=== PATIENT | male | born 1990 | race Caucasian/White ===

== ENCOUNTER 2025-03-31 06:46 | Emergency (ER) | payer OTHER, SELFPAY ==
--- OUTSIDE RECORDS SUMMARY | 1998-02-13 23:00 | XMS_ITS | Encounter Summary ---
Author Organization [facility] Address [address] [place] [id number] Care Team Providers Care Military Pilot Name Role Phone Unavailable Primary Care Provider Unavailabl e Encounter Details Date Type Department Care Team (Late st Contact Info) Description 02/14/1998 Hospital Encounter [facility] Division of Cardiology [address] [place] [phone] Social History Tobacco Use Types Packs/Day Years Used Date Smoking Tobacco: Never Assessed Sex and Gender Information Value Date Recorded Sex Assigned at Not on file Legal Sex Male 5:11 AM EST Gender Identity Not on file Sexual Orientation Not on file documented as of this encounter Plan of Treatment Not on file documented as of this encounter Visit Diagnoses Not on filedocumented in this encounter
[2025-03-31] VITALS (8 sets, daily range): BP systolic 134–150; BP diastolic 71–124; PULSE 70–86; RESP 16–18; TEMP 36.5; O2SAT 97–99; BMI 26.6
--- NOTE | 2025-03-31 06:50 | CT_ITS ---
FINAL REPORT TECHNIQUE: Axial CT images were performed through the head. Coronal and sagittal reformatted images were submitted. This study was performed with techniques to keep radiation doses as low as reasonably achievable (ALARA). Individualized dose reduction techniques using automated exposure control or adjustment of mA and/or kV according to the patient's size were employed. CLINICAL HISTORY: spouse witnessed seizure like activity, no known history of seizures COMPARISON: None FINDINGS: CT HEAD: The ventricles are normal in size. There is no evidence of hemorrhage. There is no mass or edema identified. There is no abnormal extra-axial fluid seen. Mucoperiosteal thickening is present in the ethmoid air cells. IMPRESSION: No acute intracranial process. Reviewed, Interpreted and Dictated by Rodolfo Farias MD Transcribed by Aleisha Arriola Authenticated and [facility]
--- NOTE | 2025-03-31 06:50 | CT_ITS ---
FINAL REPORT TECHNIQUE: After the administration of oral and intravenous contrast, axial images were obtained through the abdomen and pelvis by computed tomography. The study was performed with techniques to keep radiation dose as low as reasonably achievable, (ALARA). Individual dose reduction techniques using automated exposure control or adjustment of mA and/or kV according to the patient's size were employed. CLINICAL HISTORY: low L flank pain, testicle pain COMPARISON: None FINDINGS: Abdomen: The lung bases are clear. The liver parenchyma is homogeneous. The gallbladder is present. The spleen, pancreas, and adrenals appear unremarkable. There is a 6 mm nonobstructing stone present in the lower pole of the right kidney. There are also several punctate nonobstructing stones present in the left renal collecting system. No hydronephrosis is noted. The aorta is normal in caliber. There is no free fluid or adenopathy. Pelvis: The appendix is normal in appearance. The urinary bladder is unremarkable. There is no free fluid or adenopathy. IMPRESSION: No acute intra-abdominal process. Bilateral nonobstructing small renal stones, the largest of which is in the lower pole of the right kidney measuring 6 mm in size. Reviewed, Interpreted and Dictated by Rodolfo Farias MD Transcribed by Aleisha Arriola Authenticated and [facility]
--- NOTE | 2025-03-31 06:50 | US_ITS ---
PROCEDURE INFORMATION: Exam: US Scrotum Exam date and time: 03/31/2025 7:01 AM Age: 34 years old Clinical indication: Scrotum pain; Additional info: L testicle pain, gradually worsening, ttp TECHNIQUE: Imaging protocol: Real-time ultrasound of the scrotum and contents with color Doppler and image documentation. COMPARISON: No relevant prior studies available. FINDINGS: Right testicle: Normal. No mass. Normal color Doppler and arterial waveforms. No torsion. Left testicle: Normal. No mass. Normal color Doppler and arterial waveforms. No torsion. Epididymides: 7 mm cyst left epididymal head. Right epididymis unremarkable. Scrotum/soft tissues: Small bilateral hydroceles. No scrotal wall thickening. IMPRESSION: 1. No findings to suggest testicular torsion. 2. 7 mm left epididymal head cyst. 3. Small bilateral hydroceles.
--- NOTE | 2025-03-31 06:54 | HMH.EDGENADL ---
Discharge Plan Disposition Patient Disposition: Home, Self-Care Referrals Follow up/Referrals: Fede Feng MD [Staff Physician, Urology] - See instructions Provider,MD Della [Primary Care Provider, Medical] - See instructions Activity Restrictions/Add. Instructions Additional Instructions/Restrictions: I encourage you to follow-up with your primary care doctor for reevaluation as soon as possible. I am referring you to our urologist, Dr. Feng, as you are found to have a cyst on your left epididymis, which lies above the testicle. I encourage you to call them to schedule follow-up appointment. You can take Tylenol and ibuprofen to help with your pain. If you develop any new or worsening symptoms, or if you become concerned for your health for any reason, return to the emergency department for evaluation Clinical Impressions Clinical Impression: Cyst of epididymis, Left testicular pain, Acute left flank pain Print Language Print Language: Lithuanian Discharge ED Provider: Dennys Rivera General Adult HPI <Dennys Rivera MD - Last Filed: 03/31/25 07:01> General Chief complaint: PAIN Stated complaint: possible seizure Time Seen by Provider: 03/31/25 06:49 History of Present Illness HPI narrative: 34-year-old male with history of PTSD currently not taking any of his normally prescribed medications presents to the ER complaining of left testicular pain that reportedly started approximately 9 hours prior to arrival. He states it started gradually and was accompanied by low left flank pain but he states he also has a left-sided back injury recently so he is not sure if the flank pain is related to the old injury or to the testicular pain. He does report a history of kidney stones and states this feels similar but the testicular pain was new. He states he took aspirin, sinus spray, and smokes marijuana last night trying to get relief of symptoms without significant improvement. He states his pain got progressively worse all night and he was not able to get any sleep, this morning he got up to try to use the restroom but blacked out while on the commode and reportedly his witnessed convulsion type activity. Patient does not remember the convulsion specifically but remembers coming out of them hearing his telling 911 he seems to be having a seizure. He has no seizure history. He was immediately back to baseline after the episode. is not yet here to give additional history or tell me how long the episode lasted. Patient denies any headache or dizziness, no numbness, tingling, or weakness. He did have emesis with EMS shortly prior to arrival. EMS reports no medications administered prior to arrival. Patient is still shaky and has cold sweats. Denies chest pain or difficulty breathing. Reports nausea and vomiting, no diarrhea or constipation. Denies dysuria or hematuria. No known injury to the testicle. Patient is alert and oriented on arrival though diaphoretic and pale. Reports no known drug allergies. Related Data Allergies Allergy/AdvReac Type Severity Reaction Status Date / Time No Known Allergies Allergy Verified 03/31/25 07:08 [facility] <Dennys Rivera MD - Last Filed: 03/31/25 07:01> [facility] Disclaimer: The information contained in this section may have been updated after the patient was seen, as this information can be updated by other users. Social History (Updated 03/31/25 @ 07:01 by Dennys Rivera MD) Smoking Status: Unknown if ever smoked alcohol intake: never current occupational status: other Travel in the last 8 weeks?: None Have you lived/traveled outside US in past 30 days?: No Contact w/someone who lives/traveled outside US past 30 days?: No Exposure to someone with infectious disease in past 14 days?: No Do you have a fever (greater than 100.4 F or 38 C)?: No Have you tested positive for COVID-19?: No Exposed to someone with COVID-19 in past 14 days?: No Do you have a sore throat?: No Do you have a cough?: No Do you have any weakness?: No Do you have any diarrhea?: No Are you experiencing any unusual bleeding?: No Do you have any muscle aches/pain?: No Do you have any abdominal pain?: No Are you experiencing loss of taste or smell?: No <Dennys Rivera MD - Last Filed: 03/31/25 07:01> ROS Obtained: Yes Systems reviewed as appropriate & no additional complaints except as documented Per HPI Physical Exam <Dennys Rivera MD - Last Filed: 03/31/25 07:01> General General appearance: alert Comment: Obviously in pain, shivering/shaking full body in a cold sweat, diaphoretic, pale Head Head exam: atraumatic and normocephalic Eye Eye exam: Present PERRL and EOMI ENT ENT exam: Present mucous membranes moist Neck Neck exam: Present normal inspection and full ROM Chest Chest inspection: Present symmetric chest wall rise Respiratory Respiratory exam: Present normal lung sounds bilaterally; Absent respiratory distress, wheezes or stridor Cardiovascular Cardiovascular exam: Present regular rate and normal rhythm Abdominal Exam Abdominal exam: Present soft; Absent distention, tenderness, guarding or rebound exam: Present normal inspection, testicular tenderness (Mild left, not significant) and normal testicular lie; Absent scrotal swelling Extremities Exam Extremities exam: Present full ROM and normal capillary refill; Absent edema Back Exam Back exam: Present CVA tenderness (L); Absent vertebral tenderness Back 1 view image:  1. Tenderness to percussion Neurological Exam Neurological exam: Present alert, oriented X3 and other (GCS 15, NIH 0); Absent motor sensory deficit Psychiatric Psychiatric exam: Present normal affect and normal mood Skin Skin exam: Present diaphoresis and other (Cool, pale, diaphoretic) Medical Decision Making <Dennys Rivera MD - Last Filed: 03/31/25 07:01> Medical Records Screening: Per USPSTF and CDC recommendations, given the prevalence of disease in our region, it is our hospital?s policy to screen for HIV and viral Hepatitis for all patients aged 18 and over and those with ongoing risk factors. [place] Inquiry Pt receiving controlled substance: No Vital Signs: 03/31/25 06:51 03/31/25 06:58 03/31/25 07:00 Temperature 97.7 F Temperature Source Oral Pulse Rate 82 75 Pulse Rate [Left] 78 Respiratory Rate 18 Blood Pressure 148/124 H 147/84 H Blood Pressure [Right Arm] 145/78 H Blood Pressure Mean [Right Arm] 100 Blood Pressure Source [Right Arm] Automatic Cuff Blood Pressure Position [Right Arm] Sitting 02 Sat by Pulse Oximetry 99 99 97 Oxygen Delivery Method Room Air Room Air Room Air 03/31/25 07:50 03/31/25 08:01 03/31/25 08:30 Temperature Temperature Source Pulse Rate 86 71 70 Pulse Rate [Left] Respiratory Rate Blood Pressure 150/83 H 134/86 135/84 Blood Pressure [Right Arm] Blood Pressure Mean [Right Arm] Blood Pressure Source [Right Arm] Blood Pressure Position [Right Arm] 02 Sat by Pulse Oximetry 97 99 98 Oxygen Delivery Method Room Air Room Air Room Air 03/31/25 09:00 Temperature Temperature Source Pulse Rate 79 Pulse Rate [Left] Respiratory Rate Blood Pressure 139/71 Blood Pressure [Right Arm] Blood Pressure Mean [Right Arm] Blood Pressure Source [Right Arm] Blood Pressure Position [Right Arm] 02 Sat by Pulse Oximetry 97 Oxygen Delivery Method Room Air Lab Data Lab Results 03/31/25 06:55: WBC 12.2 H, RBC 5.12, Hgb 14.4, Hct 42.8, MCV 83.6, MCH 28.1, MCHC 33.6, RDW 12.6, Plt Count 259, MPV 9.9, Neut % (Auto) 53.6, Lymph % (Auto) 35.2, [place] % (Auto) 7.6, Eos % (Auto) 2.8, Baso % (Auto) 0.5, Neut # (Auto) 6.5, Lymph # (Auto) 4.3, [place] # (Auto) 0.9, Eos # (Auto) 0.3, Baso # (Auto) 0.1, Sodium 133 L, Potassium 3.8, Chloride 103, Carbon Dioxide 20 L, Anion Gap 13.8, BUN 15, Creatinine 0.90, Estimated Creat Clear 134, Estimated GFR 97, Est GFR ( Amer) 117, Glucose 143 H, Lactate 3.9 H, Calcium 9.1, Total Bilirubin 0.4, AST 25, ALT 24, Alkaline Phosphatase 66, Total Protein 6.9, Albumin 4.6, Globulin 2.3, Albumin/Globulin Ratio 2.0 H, Lipase 74, Plasma/Serum Alcohol < 10 03/31/25 09:10: Urine Color Yellow, Urine Appearance Clear, Urine pH 6.5, Ur Specific Gobler <= 1.005, Urine Protein Negative, Urine Glucose (UA) Negative, Urine Ketones Negative, Urine Blood Trace-l, Urine Nitrate Negative, Urine Bilirubin Negative, Urine Urobilinogen 0.2, Ur Leukocyte Esterase Negative, Urine RBC None, Urine WBC Occasional, Ur Squamous Epith Cells Occasional, Urine Bacteria None 03/31/25 06:55 03/31/25 06:55 Orders (Tests/Meds): ED MEDICATIONS Generic Name Dose Route Start Last Admin Trade Name Freq PRN Reason Stop Dose Admin Sodium Chloride 10 ml 03/31/25 07:48 03/31/25 07:49 Sodium Chloride 0.9% 10ml Syr (Rad Only) IV 04/30/25 07:47 10 ml NEEDED PRN Administration Maintain IV Site Discontinued Medications Generic Name Dose Route Start Last Admin Trade Name Chinyere PRN Reason Stop Dose Admin Acetaminophen 1,000 mg 03/31/25 09:02 03/31/25 09:08 Acetaminophen 500mg Tab PO 03/31/25 09:03 1,000 mg ONCE ONE Administration Lactated Ringer's 1,000 mls @ 999 mls/hr 03/31/25 06:51 03/31/25 09:11 Lactated Ringer's 1000 Ml Bag IV 03/31/25 07:51 Infused .Q1H1M ONE Infusion Iopamidol 75 ml 03/31/25 07:48 03/31/25 07:49 Iopamidol-370 (76%);100ml Bottle IV 03/31/25 07:49 75 ml ONCE ONE Administration Morphine Sulfate 6 mg 03/31/25 06:51 03/31/25 07:46 Morphine 4mg/Ml Syringe IV 03/31/25 06:52 6 mg ONCE ONE Administration Ondansetron HCl 4 mg 03/31/25 06:51 03/31/25 07:46 Ondansetron 4mg/2ml Vial IV 03/31/25 06:52 4 mg ONCE ONE Administration ORDERS Category Date Time Status CT abdomen pelvis w con Stat Cat Scan 03/31/25 06:[address] head/brain wo con Stat Cat Scan 03/31/25 06:50 Completed CBC w/Auto Diff [Complete Blood Count Auto Diff] Stat Lab 03/31/25 06:55 Completed CMP [Comprehensive Metabolic Panel] Stat Lab 03/31/25 06:55 Completed Ethanol [Ethyl Alcohol] Stat Lab 03/31/25 06:55 Completed Lactic Acid Stat Lab 03/31/25 06:55 Completed Lipase Stat Lab 03/31/25 06:55 Completed UDS [Drug Screen,Urine] Stat Lab 03/31/25 07:38 Received Urinalysis and Microscopic Stat Lab 03/31/25 09:10 Completed Testicular US [US Testicular] Stat Ultrasound 03/31/25 06:50 Completed Medical Decision Narrative: In summary, this 34-year-old male with comorbidities described in the HPI presents to the emergency department today with left testicular pain, left flank pain, vomiting, seizure-like activity. On initial evaluation patient is hemodynamically stable, afebrile, pale, cool, diaphoretic, alert, oriented, GCS 15, NIH 0, exam notable for left-sided CVA tenderness and very mild left testicular tenderness though the testicle appears to be in normal lie, soft, remainder of exam benign. Differential diagnosis includes but is not limited to seizure-like activity, syncope with convulsions, urolithiasis, hydronephrosis, kidney dysfunction, testicular torsion, urinary tract infection, intoxication, electrolyte abnormality, dehydration, among others. Based on these concerns, I ordered emergent testicular ultrasound, CT abdomen pelvis, CT head, hematologic and serum labs, urinalysis. Patient is receiving morphine, Zofran, IV fluids for initial treatment. Patient handed off to Dr. Silva in stable condition pending lab and imaging workup. <Emanuel Silva MD - Last Filed: 03/31/25 10:04> Vital Signs: 03/31/25 06:51 03/31/25 06:58 03/31/25 07:00 Temperature 97.7 F Temperature Source Oral Pulse Rate 82 75 Pulse Rate [Left] 78 Respiratory Rate 18 Blood Pressure 148/124 H 147/84 H Blood Pressure [Right Arm] 145/78 H Blood Pressure Mean [Right Arm] 100 Blood Pressure Source [Right Arm] Automatic Cuff Blood Pressure Position [Right Arm] Sitting 02 Sat by Pulse Oximetry 99 99 97 Oxygen Delivery Method Room Air Room Air Room Air 03/31/25 07:50 03/31/25 08:01 03/31/25 08:30 Temperature Temperature Source Pulse Rate 86 71 70 Pulse Rate [Left] Respiratory Rate Blood Pressure 150/83 H 134/86 135/84 Blood Pressure [Right Arm] Blood Pressure Mean [Right Arm] Blood Pressure Source [Right Arm] Blood Pressure Position [Right Arm] 02 Sat by Pulse Oximetry 97 99 98 Oxygen Delivery Method Room Air Room Air Room Air 03/31/25 09:00 Temperature Temperature Source Pulse Rate 79 Pulse Rate [Left] Respiratory Rate Blood Pressure 139/71 Blood Pressure [Right Arm] Blood Pressure Mean [Right Arm] Blood Pressure Source [Right Arm] Blood Pressure Position [Right Arm] 02 Sat by Pulse Oximetry 97 Oxygen Delivery Method Room Air Lab Data Lab Results 03/31/25 06:55: WBC 12.2 H, RBC 5.12, Hgb 14.4, Hct 42.8, MCV 83.6, MCH 28.1, MCHC 33.6, RDW 12.6, Plt Count 259, MPV 9.9, Neut % (Auto) 53.6, Lymph % (Auto) 35.2, [place] % (Auto) 7.6, Eos % (Auto) 2.8, Baso % (Auto) 0.5, Neut # (Auto) 6.5, Lymph # (Auto) 4.3, [place] # (Auto) 0.9, Eos # (Auto) 0.3, Baso # (Auto) 0.1, Sodium 133 L, Potassium 3.8, Chloride 103, Carbon Dioxide 20 L, Anion Gap 13.8, BUN 15, Creatinine 0.90, Estimated Creat Clear 134, Estimated GFR 97, Est GFR ( Amer) 117, Glucose 143 H, Lactate 3.9 H, Calcium 9.1, Total Bilirubin 0.4, AST 25, ALT 24, Alkaline Phosphatase 66, Total Protein 6.9, Albumin 4.6, Globulin 2.3, Albumin/Globulin Ratio 2.0 H, Lipase 74, Plasma/Serum Alcohol < 10 03/31/25 09:10: Urine Color Yellow, Urine Appearance Clear, Urine pH 6.5, Ur Specific [place] <= 1.005, Urine Protein Negative, Urine Glucose (UA) Negative, Urine Ketones Negative, Urine Blood Trace-l, Urine Nitrate Negative, Urine Bilirubin Negative, Urine Urobilinogen 0.2, Ur Leukocyte Esterase Negative, Urine RBC None, Urine WBC Occasional, Ur Squamous Epith Cells Occasional, Urine Bacteria None Orders (Tests/Meds): ED MEDICATIONS Generic Name Dose Route Start Last Admin Trade Name Malcolmq PRN Reason Stop Dose Admin Sodium Chloride 10 ml 03/31/25 07:48 03/31/25 07:49 Sodium Chloride 0.9% 10ml Syr (Rad Only) IV 04/30/25 07:47 10 ml NEEDED PRN Administration Maintain IV Site Discontinued Medications Generic Name Dose Route Start Last Admin Trade Name Freq PRN Reason Stop Dose Admin Acetaminophen 1,000 mg 03/31/25 09:02 03/31/25 09:08 Acetaminophen 500mg Tab PO 03/31/25 09:03 1,000 mg ONCE ONE Administration Lactated Ringer's 1,000 mls @ 999 mls/hr 03/31/25 06:51 03/31/25 09:11 Lactated Ringer's 1000 Ml Bag IV 03/31/25 07:51 Infused .Q1H1M ONE Infusion Iopamidol 75 ml 03/31/25 07:48 03/31/25 07:49 Iopamidol-370 (76%);100ml Bottle IV 03/31/25 07:49 75 ml ONCE ONE Administration Morphine Sulfate 6 mg 03/31/25 06:51 03/31/25 07:46 Morphine 4mg/Ml Syringe IV 03/31/25 06:52 6 mg ONCE ONE Administration Ondansetron HCl 4 mg 03/31/25 06:51 03/31/25 07:46 Ondansetron 4mg/2ml Vial IV 03/31/25 06:52 4 mg ONCE ONE Administration ORDERS Category Date Time Status CT abdomen pelvis w con Stat Cat Scan 03/31/25 06:[address] head/brain wo con Stat Cat Scan 03/31/25 06:50 Completed CBC w/Auto Diff [Complete Blood Count Auto Diff] Stat Lab 03/31/25 06:55 Completed CMP [Comprehensive Metabolic Panel] Stat Lab 03/31/25 06:55 Completed Ethanol [Ethyl Alcohol] Stat Lab 03/31/25 06:55 Completed Lactic Acid Stat Lab 03/31/25 06:55 Completed Lipase Stat Lab 03/31/25 06:55 Completed UDS [Drug Screen,Urine] Stat Lab 03/31/25 07:38 Received Urinalysis and Microscopic Stat Lab 03/31/25 09:10 Completed Testicular US [US Testicular] Stat Ultrasound 03/31/25 06:50 Completed Medical Decision Narrative: In summary, this 34-year-old male with comorbidities described in the HPI presents to the emergency department today with left testicular pain, left flank pain, vomiting, seizure-like activity. On initial evaluation patient is hemodynamically stable, afebrile, pale, cool, diaphoretic, alert, oriented, GCS 15, NIH 0, exam notable for left-sided CVA tenderness and very mild left testicular tenderness though the testicle appears to be in normal lie, soft, remainder of exam benign. Differential diagnosis includes but is not limited to seizure-like activity, syncope with convulsions, urolithiasis, hydronephrosis, kidney dysfunction, testicular torsion, urinary tract infection, intoxication, electrolyte abnormality, dehydration, among others. Based on these concerns, I ordered emergent testicular ultrasound, CT abdomen pelvis, CT head, hematologic and serum labs, urinalysis. Patient is receiving morphine, Zofran, IV fluids for initial treatment. Patient handed off to Dr. Silva in stable condition pending lab and imaging workup. Emanuel Silva MD At the time my assumption of care, plan was to follow-up patient's workup. Ultimately, patient's workup showed patient's workup shows mild leukocytosis of 12.2 without neutrophilia. No anemia. Mild hyponatremia at 133 but electrolytes otherwise within normal limits. No GLO. Lactate is elevated 3.9. Lipase normal at 74. Liver enzymes bilirubin within normal limits. Alcohol level less than 10. Ultrasound showed no evidence of testicular torsion. Patient does have a 7 mm left epididymal head cyst and bilateral small hydroceles. No other acute findings. CT head interpreted by me personally. No intracranial hemorrhage, mass or midline shift. CT abdomen pelvis showed no acute intra-abdominal process. Patient has bilateral nonobstructing small renal stones within the kidneys. The largest measuring 6 mm in the right lower pole of the kidney. See radiology for for final details. Urinalysis without evidence of blood or infection. On reassessment, patient has had some improvement in his pain without complete resolution but is significantly more comfortable at this time. Is possible that patient has passed a small kidney stone given there is evidence of small kidney stones within the kidney on his CT imaging. Patient may be having some discomfort from his epididymal cyst as well and will give referral to Dr. Feng with urology for follow-up. Did give the patient strict return precautions. Encouraged him to follow-up with his primary care doctor closely, whom he says he can get in it anytime he wants. Instruct him to take Tylenol and ibuprofen to help with symptoms. All questions were answered. He demonstrated understanding and was in agreement this plan. He was then discharged from the emergency department in stable condition. Critical Care <Dennys Rivera MD - Last Filed: 03/31/25 07:01> Critical Care Time Critical Care Time: No
[2025-03-31 07:03] LABS: Hematocrit 42.8 % (42.0-52.0); Hemoglobin 14.4 g/dL (14.1-18.0); Immature Granulocytes % 0.3 %; Mean Corpuscular HGB Conc 33.6 g/dL (31.8-35.4); Mean Corpuscular Hemoglobin 28.1 pg (27.0-31.2); Mean Corpuscular Volume 83.6 fl (80-94); Nucleated Red Blood Cells % 0 %; Platelet Count 259 K/mm3 (142-424); Red Blood Count 5.12 M/mm3 (4.60-6.20); Red Cell Distribution Width-SD 38.4 fL; White Blood Count 12.2 K/mm3 (4.8-10.8)
--- OUTSIDE RECORDS SUMMARY | 2025-03-31 07:09 | XMS_ITS | Clinical Summary ---
Author Organization [facility] Address [address] [place] [address] Care Team Providers Care Properties Supervisor Name Role Phone Unavailable Primary Care Provider Unavailabl e Source Comments [facility] is fully rolled out with thefollowing exceptions:General Clinical Research [facility] Social History Tobacco Use Types Packs/Day Years Used Date Smoking Tobacco: Never Assessed Sex and Gender Information Value Date Recorded Sex Assigned at Not on file Legal Sex Male 5:11 AM EST Gender Identity Not on file Sexual Orientation Not on file Plan of Treatment Health Maintenance Due Date Last Done Comments MMR IMMUNIZATION (1 of 1 - S tandard series) 1991 DTAP/Tdap/Td IMMUNIZATION (1 - Tdap) 1997 VARICELLA IMMUNIZATION (1 of 2 - 13+ 2-dose series) 2003 HEPATITIS B IMMUNIZATION (1 of 3 - 19+ 3-dose series) 2009 HPV IMMUNIZATION (1 - 3-dose SCDM series) 2017 AMB SEASONAL FLU VACCINE (#1) 01/09/2025 COVID-19 Vaccine ( - 2024-2 6 season) 2025 HIB IMMUNIZATION Aged Out No longer e ligible based on patient's age to complete this topic IPV IMMUNIZATION Aged Out No longer e ligible based on patient's age to complete this topic MCV4 IMMUNIZATION Aged Out No longer eligible based on patient's age to complete this topic MENINGOCOCCAL B VACCINE Aged Out No l onger eligible based on patient's age to complete this topic PNEUMOCOCCAL IMMUNIZATION Aged Out No longer eligible based on patient's age to complete this topic Respiratory Syncytial Virus (RSV) <20mo Aged Out No longer eligible b ased on patient's age to complete this topic
--- NOTE | 2025-03-31 07:10 | PC.NURSE ---
Pt taken to get testicular US
[2025-03-31 07:14] LABS: Alanine Aminotransferase 24 U/L (12-78); Albumin Level 4.6 g/dl (3.5-5.0); Albumin/Globulin Ratio 2.0 (1.1-1.8); Alkaline Phosphatase 66 U/L (38-126); Anion Gap 13.8 mEq/L (5-15); Aspartate Amino Transferase 25 U/L (17-59); Bilirubin,Total 0.4 mg/dl (0.2-1.3); Blood Urea Nitrogen 15 mg/dl (9-20); Calcium 9.1 mg/dl (8.4-10.2); Carbon Dioxide 20 mmol/L (22.0-30.0); Chloride 103 mmol/L (98-107); Creatinine Clearance Estimated 134 mL/min (50-200); Creatinine,Serum 0.90 mg/dl (0.66-1.25); Estimated Glomerular Filt Rate 97 ml/min (>60); GFR (African American) 117 ML/MIN (>60); Globulin 2.3 g/dL (1.3-3.2); Glucose 143 mg/dl (74-100); Lipase 74 U/L (23-300); Potassium 3.8 mmoL/L (3.5-5.1); Sodium 133 mmol/L (136-145); Total Protein,Serum 6.9 g/dl (6.3-8.2)
[2025-03-31] MEDS: LACTATED RINGERS 1000ML 1,000 ML 999 ML IV (07:46)
[2025-03-31] MEDS: MORPHINE 4MG/ML SYRINGE 6 MG IV (07:46)
[2025-03-31] MEDS: ONDANSETRON 4MG/2ML VIAL 4 MG IV (07:46)
[2025-03-31] MEDS: SODIUM CHLORIDE 0.9% 10ML SYR (RAD ONLY) 10 ML IV (07:49)
[2025-03-31] MEDS: IOPAMIDOL-370 (76%);100ML BOTTLE 75 ML IV (07:49)
[2025-03-31] MEDS: ACETAMINOPHEN 500MG TAB 1000 MG PO (09:08)
[2025-03-31 09:34] LABS: Microscopic, Urine URINE MICROSCOPIC (MICROSCOPIC)
[2025-03-31 09:37] LABS: Bilirubin,Urine Negative (Negative); Color,Urine YELLOW (Yellow); Glucose,Urine (UA) Negative (Negative); Ketones,Urine Negative (Negative); Leukocyte Esterase,Urine Negative (Negative); PH,Urine 6.5 (5.0-8.5); Protein,Urine Negative (Negative); Specific Gravity, Urine <= 1.005 (1.005-1.030); Urobilinogen,Urine 0.2 EU/dl (0.2)
[2025-03-31 09:50] LABS: Amphetamine/Metha Screen,Urine Negative ng/ml (<1000)
[2025-03-31 09:51] LABS: Barbiturates Screen,Urine Negative ng/ml (<200); Benzodiazepines Screen,Urine Negative ng/ml (<200)
[2025-03-31 09:53] LABS: Methadone Screen,Urine Negative ng/ml (<300)
[2025-03-31 09:54] LABS: Opiate Screen,Urine Positive ng/ml (<300); Phencyclidine Screen,Urine Negative ng/ml (<25)
[2025-03-31 09:58] LABS: Squamous Epithelial Cell,Urine Occasional #/hpf (0-5); WBC,Urine Occasional #/hpf (0-3)
[2025-03-31 11:00] LABS: Reflex Lactic Add Lactic Reflex
== END 2025-03-31 10:16 | disposition home or self-care (01) ==
PROVIDERS: Emergency Provider Emergency Medicine
DX: N50.812 Left testicular pain (principal); N50.3 Cyst of epididymis; R10.A2 Flank pain, left side; N20.0 Calculus of kidney
CPT/HCPCS: 70450; 74177; 76870; 80053; 80307; 80320; 81001; 83605; 83690; 85025; 96361; 96374; 96375; 99285; J2270; J2405; J7120; Q9967